=== PATIENT | female | born 1975 | race Caucasian/White ===

== ENCOUNTER 2017-10-22 18:25 | Emergency (ER) | payer BC | END 2017-10-22 19:10 | disposition home or self-care (01) | LOC: E/R 18:25 | DX: J20.9 Acute bronchitis, unspecified (principal) | CPT/HCPCS: 99284; Z7502 ==

== ENCOUNTER 2018-03-30 01:38 | Emergency (ER) | payer BC ==
[2018-03-30] MEDS: HYDROCODONE/APAP (5/325) TAB PO (02:29)
== END 2018-03-30 03:40 | disposition home or self-care (01) ==
LOC: FTE 01:38
DX: H66.91 Otitis media, unspecified, right ear (principal); E11.9 Type 2 diabetes mellitus without complications; Z79.84 Long term (current) use of oral hypoglycemic drugs
CPT/HCPCS: 81025; 99284